=== PATIENT | female | born 1970 ===

== ENCOUNTER → 2017-07-20 | Emergency (ER) | payer OTHER ==
[~2017-07-20] VITALS: Ht 154.9 cm; Wt 57.6 kg
[~2017-07-20] MED LIST: AMOX1TAB12 PO; FLONASE ALLERG9.9 ML NASAL; MEDROLPACK PO; PROBIOTIC & AC1 EACH PO
== END | disposition home or self-care (01) ==
LOC: ER 11:33
DX: J32.8 Other chronic sinusitis (principal); R50.9 Fever, unspecified

== ENCOUNTER 2019-08-05 16:33 | Emergency (ER) | payer OTHER ==
[~2019-08-05] VITALS: Ht 157.5 cm; Wt 56.7 kg
[2019-08-05] MEDS ORDERED: ONDANSETRON ODT4 MG SL (21:40)
[2019-08-05] MEDS ORDERED: KETO10TA2 PO (21:40)
[2019-08-05] MEDS ORDERED: MUCINEX DM ER1 EAC1 PO (21:40)
[2019-08-05] MEDS ORDERED: OSEL75CA PO (21:40)
== END 2019-08-05 21:43 ==
LOC: ER 16:33
DX: J09.X2 Influenza due to identified novel influenza A virus with other respiratory manifestations (principal)